=== PATIENT | female | born 1960 | race Caucasian/White ===

== ENCOUNTER 2016-09-30 22:12 | Observation (INO) | payer BC ==
[~2016-09-30] VITALS: Ht 167.6 cm; Wt 64.4 kg
--- NOTE | ~2016-09-30 | EKG ---
[address] [address] ELECTROCARDIOGRAM REPORT Name: LOLIS WHITFIELD Room #: 205-[facility]#: [id number] Admission: 09/30/16 Attend Phys: Demetri Ross MD Discharge: Date of : 56 Report #: [id number] THIS REPORT FOR: //name// [facility] ED Test Date: 2016-09-30 Test Time: 22:23:10 Pat Name: LOLIS WHITFIELD Department: Room: [facility] Gender: F Ground Equipment Mechanic: CHRISTINA : 1960 Requested By: Boaz Jaime Order Number: [id number] MD: Carlos Bermeo Measurements Intervals [place] Rate: 65 P: 29 RI: 122 QRS: 49 QRSD: 98 T: 22 QT: 394 QTc: 410 Interpretive Statements Sinus rhythm Normal tracing Compared to ECG 06/19/2003 15:25:04 No significant changes Electronically Signed On 10-01-2016 8:30:07 CDT by Carlos Bermoe [email or web address] <ELECTRONICALLY SIGNED> By: Carlos Bermeo MD, [facility] 10/01/16 0830 22 22 Carlos Bermeo MD, [facility] /EPI
--- NOTE | ~2016-09-30 | EKG ---
[address] [address] ELECTROCARDIOGRAM REPORT Name: LOLIS WHITFIELD Room #: 205-[facility]#: [id number] Admission: 09/30/16 Attend Phys: Demetri Ross MD Discharge: Date of : 56 Report #: [id number] THIS REPORT FOR: //name// [facility] Test Date: 2016-10-01 Test Time: 07:27:31 Pat Name: LOLIS WHITFIELD Department: Room: 205 Gender: F Steel Fabricator: Dwayne FERRARI : 1960 Requested By: Clementine Haney Order Number: [id number] MD: Carlos Bermeo Measurements Intervals [place] Rate: 56 P: 53 MA: 120 QRS: 73 QRSD: 112 T: 45 QT: 413 QTc: 399 Interpretive Statements Sinus bradycardia Otherwise no significant abnormality Compared to ECG 06/19/2003 15:25:04 No significant changes Electronically Signed On 10-01-2016 8:31:50 CDT by Carlos Bermeo [email or web address] <ELECTRONICALLY SIGNED> By: Carlos Bermeo MD, [facility] [id number] Carlos Bermeo MD, [facility] /EPI
[2016-09-30 22:17] VITALS: BP 146/79
[2016-09-30 22:34] LABS: ABSOLUTE NEUTROPHILS 4.1 thou/uL (1.4-8.2); BASOPHILS 0.6 % (0.0-2.0); EOSINOPHILS 1.3 % (0.0-3.0); HEMOGLOBIN 14.2 gm/dL (12.0-15.0); LYMPHOCYTES 39.9 % (24.0-44.0); MCHC 33.9 g/dL (28.0-37.0); MCV 88.5 fL (80.0-100.0); MONOCYTES 7.6 % (1.0-8.0); PLATELET COUNT 150 thou/uL (150-400); POLYS 50.6 % (36.0-66.0); RBC 4.75 mil/uL (4.20-5.00); RDW 13.5 % (10.5-14.5); WBC 8.1 thou/uL (4.0-11.0)
[2016-09-30 22:40] LABS: MANUAL DIFF NO
[2016-09-30 22:42] LABS: ANION GAP 8 mmol/L (7-16); BUN 16 mg/dL (7-18); CALCIUM 9.1 mg/dL (8.5-10.1); CHLORIDE 105 mmol/L (98-107); CO2 29 mmol/L (21-32); CREATININE 0.9 mg/dL (0.6-1.0); GLUCOSE 102 mg/dL (74-106); POTASSIUM 3.6 mmol/L (3.5-5.1); SODIUM 142 mmol/L (136-145)
[2016-09-30 22:50] LABS: ALBUMIN 3.6 g/dL (3.4-5.0); ALKALINE PHOSPHATASE 73 U/L (46-116); MAGNESIUM 2.2 mg/dL (1.8-2.4); SGOT 18 U/L (15-37); SGPT 25 U/L (30-65); TOTAL BILIRUBIN 0.4 mg/dL (<0.1-1.0); TROPONIN-I < 0.04 ng/mL (<0.04-0.07)
[2016-09-30 23:36] VITALS: BP 156/77
[2016-09-30 23:59] VITALS: BP 134/89
[2016-10-01 04:23] VITALS: BP 129/83
[2016-10-01 04:30] LABS: CHOLESTEROL 149 mg/dL (<200); HDL CHOLESTEROL 62 mg/dL (>40); LDL CHOLESTEROL 69 mg/dL (<100); TC:HDL 2.4 Ratio (Not establshd); TRIGLYCERIDE 90 mg/dL (<150); TROPONIN-I < 0.04 ng/mL (<0.04-0.07); VLDL 18 mg/dL (<40)
[2016-10-01 04:31] LABS: SERUM ASSESSMENT Clear
[2016-10-01 08:10] VITALS: BP 122/79
[2016-10-01 15:24] VITALS: BP 122/79
== END 2016-10-01 16:10 | disposition home or self-care (01) ==
LOC: ER 22:12 → EROBS 22:53 → 2N 23:37
PROVIDERS: Emergency Medicine; Nurse Practitioner Acute Care
DX: R07.89 Other chest pain (principal); I10 Essential (primary) hypertension; I99.8 Other disorder of circulatory system

== ENCOUNTER → 2016-10-19 | Outpatient (CLI) | payer OTHER | LOC: CAT 07:31 | DX: Z13.6 Encounter for screening for cardiovascular disorders (principal) ==